=== PATIENT | female | born 1965 | race African-American/Black ===

== ENCOUNTER 2017-02-24 13:25 | Emergency (ER) | payer SELFPAY ==
[~2017-02-24] VITALS: Ht 167.6 cm; Wt 73.0 kg
[~2017-02-24 13:25] MED LIST: IOHEXOL-300 100 ML BOTTLE ONE; SODIUM CHLORIDE 0.9% 10ML VIAL ONE
[2017-02-24] MEDS ORDERED: MORPHINE SULFATE 4 MG/ML CPJ (NOT FOR IM USE) IV STA (14:46)
[2017-02-24] MEDS ORDERED: ONDANSETRON HCL 4MG/2ML VIAL IV STA (14:46)
[2017-02-24] MEDS ORDERED: SODIUM CHLORIDE 0.9% 1000ML BAG (SEPSIS BOLUS) IV ONE (15:00)
[2017-02-24 15:27] LABS: BASOPHILS % 1.3 % (0.0-2.0); EOSINOPHILS % 1.8 % (0.0-5.0); HEMATOCRIT. 39.4 % (36.0-48.0); HEMOGLOBIN. 13.3 g/dL (12.0-16.0); LYMPHOCYTES % 26.8 % (20.0-50.0); MEAN CORPUSCULAR HEMOGLOBIN 31.2 pg (28.0-32.0); MEAN CORPUSCULAR HGB CONC 33.7 g/dL (31.0-37.0); MEAN CORPUSCULAR VOLUME 92.6 fL (81.0-99.0); MEAN PLATELET VOLUME 9.2 fl (7.4-10.4); MONOCYTES % 8.5 % (2.0-8.0); NEUTROPHILS % 61.6 % (40.0-76.0); PLATELET 229 x1000/uL (130-400); RED BLOOD CELL COUNT 4.26 mill/uL (4.2-5.4); RED CELL DISTRIBUTION WIDTH 13.1 % (11.6-14.6); WHITE BLOOD COUNT 7.3 x1000/uL (4.5-11.0)
[2017-02-24 15:33] LABS: HCG SCREEN NEGATIVE
[2017-02-24 15:34] LABS: ALBUMIN 3.5 g/dL (3.4-5.0); ANION GAP 12; CALCIUM 8.8 mg/dL (8.5-10.1); CARBON DIOXIDE 28 mEq/L (21-32); CHLORIDE 102 mEq/L (98-107); INDEX HEMOLYSI 1 (1-3); INDEX ICTERIC 1 (1-4); INDEX LIPEMIC 1 (1-3); LIPASE 98 IU/L (73-393); UREA NITROGEN BLOOD 8 mg/dL (7-21)
[2017-02-24 15:35] LABS: INR 1.1; PARTIAL THROMBOPLASTIN TIME 27.4 sec (24.0-34.0)
[2017-02-24 15:42] LABS: ALANINE AMINOTRANSFERASE 74 IU/L (13-61); ETHANOL BLOOD < 10 mg/dL; NT PRO B-TYPE NATRIURETIC PEP 34 pg/mL (5-125); eGFR > 60 mL/min (>60)
[2017-02-24 15:43] LABS: TROPONIN I < 0.02 ng/mL (0.00-0.04)
[2017-02-24 16:48] LABS: CLARITY URINE CLOUDY (CLEAR); COLOR URINE DARK YELLOW (YELLOW); GLUCOSE URINE NEGATIVE (NEGATIVE); KETONES URINE TRACE (NEGATIVE); LEUKOCYTE ESTERASE URINE 3+ (NEGATIVE); NITRITE URINE NEGATIVE (NEGATIVE); OCCULT BLOOD URINE 2+ (NEGATIVE); PH URINE 5.5 (4.5-8.0); PROTEIN URINE NEGATIVE (NEGATIVE); SPECIFIC GRAVITY URINE 1.026 (1.005-1.030)
[2017-02-24 17:04] LABS: *AMPHETAMINES SCREEN URINE NEGATIVE (NEGATIVE); *BARBITURATES SCREEN URINE NEGATIVE (NEGATIVE); *BENZODIAZEPINES SCREEN URINE NEGATIVE (NEGATIVE); *COCAINE SCREEN URINE PRESUMTIVE POSITIVE (NEGATIVE); CANNABINOID URINE SCREEN PRESUMTIVE POSITIVE (NEGATIVE); ECSTASY MDMA SCREEN URINE NEGATIVE (NEGATIVE); METHADONE URINE SCREEN NEGATIVE (NEGATIVE); OPIATES URINE SCREEN NEGATIVE (NEGATIVE); PHENCYCLIDINE URINE SCREEN NEGATIVE (NEGATIVE)
[2017-02-24 17:12] VITALS: BP 129/78
[2017-02-24 17:13] LABS: WBC URINE 50-100 /hpf (0-2)
[2017-02-24 17:14] LABS: BACTERIA URINE 2+; MUCUS URINE 1+ /lpf (< = 2+); SQUAMOUS EPITHELIAL CELL URINE 1+ /lpf (RARE/1+)
[2017-02-24] MEDS ORDERED: LEVOFLOXACIN 500MG TABLET PO ONE (17:30)
[2017-02-24] MEDS ORDERED: METRONIDAZOLE 500MG TABLET PO ONE (17:30)
== END 2017-02-24 18:50 | disposition home or self-care (01) ==
LOC: ER 15:05
DX: N39.0 Urinary tract infection, site not specified (principal); F14.129 Cocaine abuse with intoxication, unspecified; F12.129 Cannabis abuse with intoxication, unspecified; K52.9 Noninfective gastroenteritis and colitis, unspecified; Z98.890 Other specified postprocedural states; Z88.0 Allergy status to penicillin
CPT/HCPCS: 36415; 71010; 74177; 80053; 80305; 81001; 83605; 83690; 83735; 83880; 84484; 84703; 85025; 85610; 85730; 87040; 87077; 87086; 87186; 93005; 96361; 96374; 96375; 99285; A4216; G0482; J2270; J2405; J7030; Q9967; Z7610

== ENCOUNTER 2017-02-24 22:16 | Emergency (ER) | payer SELFPAY ==
[~2017-02-24] VITALS: Ht 167.6 cm; Wt 73.0 kg
[2017-02-25] MEDS ORDERED: CEFTRIAXONE SODIUM 500 MG/VIAL IM ONE (00:45)
[2017-02-25] MEDS ORDERED: LIDOCAINE HCL 1% 20ML VIAL (Pyxis) INJ INFIL ONE (00:45)
[2017-02-25] MEDS ORDERED: HYDROCODONE/ACETAMINOPHEN 10/325MG TABLET PO ONE (00:45)
[2017-02-25 01:28] VITALS: BP 108/74
== END 2017-02-25 01:32 | disposition home or self-care (01) ==
LOC: ER 22:18
DX: K52.89 Other specified noninfective gastroenteritis and colitis (principal); K56.60 Unspecified intestinal obstruction; F17.200 Nicotine dependence, unspecified, uncomplicated; F12.10 Cannabis abuse, uncomplicated; F11.10 Opioid abuse, uncomplicated; Z88.0 Allergy status to penicillin
CPT/HCPCS: 96372; 99283; J0696; J3490